=== PATIENT | male | born 1995 | race Caucasian/White ===

== ENCOUNTER 2016-12-15 08:52 | Inpatient (IN) | payer OTHER ==
[~2016-12-15] VITALS: Ht 188 cm; Wt 74.8 kg
[~2016-12-15 08:52] MED LIST: AMOXICILLIN500 M1 PO; BACTRIM DS 8001 TAB PO; FLEXERIL 5MG TAB5 MG PO; IBU800 MG PO; NAPROXEN500 MG PO; PREDNICOT20 MG PO; PROAIR HFA8.5 GM INH; TRAMADOL50 MG PO
--- NOTE | 2016-12-15 09:12 | ED AMS/SEIZURE/WEAK/DIZZY ---
History of Present Illness General Chief Complaint: ETOH/Drug Related Complaint Stated Complaint: BIBA FOR OVERDOSE Source: old records, EMS Exam Limitations: unable to give history, clinical condition Vital Signs & Intake/Output Vital Signs & Intake/Output Vital Signs Date Time Temp Pulse Resp B/P Pulse O2 O2 Flow FiO2 Ox Delivery Rate 12/15 1249 97.4 91 16 115/61 100 Room Air 12/15 1046 97.7 120 20 113/77 97 Room Air Room Air 12/15 0926 97 Room Air Room Air 12/15 0918 97.7 122 20 139/93 97 Allergies Coded Allergies: aspirin (UNKNOWN 12/15/16) venom-honey bee (UNKNOWN 12/15/16) Reconcile Medications Albuterol Sulfate (Proair Hfa) 90 MCG HFA.AER.AD 2 PUF INH Q4-6 PRN PRN asthma (Reported) Methadone Hydrochloride (Methadone HCl) 10 MG TABLET 70 MG PO DAILY opiate use (Reported) Only one dose given in the hospital. Please contact your methadone clinic for further instructions. Triage Nurses Notes Reviewed? yes HPI: Patient presents for evaluation of unresponsiveness. He was dosed with 2 mg of Narcan prehospital with improvement. He presents to the emergency department delirious, writhing on the stretcher. Patient attempts to answer questions with mumbled unintelligible speech. Past History Travel History Traveled to [place] past 21 day No Medical History Any Pertinent Medical History? 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 No (UNOBTAINABLE) Review of Systems Review of Systems Constitutional: Reports: see HPI. Comments pt unable to provide ros Physical Exam Physical Exam General Appearance: see below Comments: gen: wn, wd, no acute resp distress head: nc/at eyes: normal inspection, perrl ears: normal inspection nose: normal inspection throat/mouth: moist mucosa neck: supple, from, no goiter heart: rrr, no mrg lungs: cta bilaterally with normal air entry chest: nt abd: soft, nd, normal bowel sounds, nontender back: normal range of motion ext: normal range of motion, no cyanosis, clubbing or edema skin: warm and dry circulatory: normal radial pulses neuro: cn 2-12 grossly intact, speech garbled and unintelligable, unable to assess further psych: delirious, uncooperative, unable to assess further Core Measures ACS in differential dx? No CVA/TIA Diagnosis: No Severe Sepsis Present: No Septic Shock Present: No Progress Differential Diagnosis: drug intoxication, overdose, suicide attempt Plan of Care: Orders Procedure Date/time Status Admit to inpatient 12/15 1300 Active Admit to inpatient 12/15 1255 Active Restraint- Discontinue 12/15 1224 Active Restraint- Behavioral (Renew) 12/15 1200 Active Patient Safety Monitor 12/15 0910 Active Restraint- Behavioral (Initial 12/15 0910 Active URINE DRUG SCREEN FOR ER ONLY 12/15 909 Complete ACETOMINOPHEN 12/15 909 Complete SALICYLATE 12/15 909 Complete ETHANOL 12/15 909 Complete COMPREHENSIVE METABOLIC PANEL 12/15 909 Complete CBC WITHOUT DIFFERENTIAL 12/15 909 Complete Laboratory Tests 12/15/16 0950: Anion Gap 16, Estimated GFR > 60, BUN/Creatinine Ratio 8.8, Glucose 136 H, Calcium 9.1, Total Bilirubin 0.6, AST 20, ALT 22, Alkaline Phosphatase 109, Total Protein 6.5, Albumin 4.1, Globulin 2.4, Albumin/Globulin Ratio 1.7, Salicylates < 1.0, Acetaminophen < 10.0 L, Serum Alcohol < 10.0 12/15/16 0940: Urine Opiates Screen 3341.00 H, Methadone Screen > 735 H, Barbiturate Screen < 60, Ur Phencyclidine Scrn < 6.00, Amphetamines Screen < 100, U Benzodiazepines Scrn > 800 H, Urine Cocaine Screen > 1000 H, Urine Cannabis Screen < 5.00 12/15/16 0915: CBC w Diff NO MAN DIFF REQ, RBC 4.39 L, MCV 87.2, MCH 29.2, RDW 12.9, MPV 9.4, Gran % 66.6, Lymphocytes % 18.5 L, Monocytes % 12.8 H, Eosinophils % 1.5, Basophils % 0.6, Absolute Granulocytes 5.9, Absolute Lymphocytes 1.6, Absolute Monocytes 1.1 H, Absolute Eosinophils 0.1, Absolute Basophils 0, PUBS MCHC 33.5 Initial ED EKG: NSR, no ST T wave changes Comments: 12/15/2016 9:11:07 AM Abad is not responsive to verbal redirection. He continues to move and writhe around the stretcher. He presents a clear risk to himself in attempts to get off the stretcher unsafely. He is at high risk of falling with subsequent injury. 4. restraints have been ordered. Given the likely etiology of narcotic overdose I'm attempting to hold on sedation at this time. additional information per father. pt has a court appt this am. excuse note provided. 12:24 abad has calmed and restraints have been removed. o2 sats remain normal. workup reveals polypharmaceutical overdose. tba. Departure Departure Disposition: STILL A PATIENT Condition: Stable Clinical Impression Primary Impression: Polysubstance overdose Qualifiers: Encounter type: initial encounter Injury intent: undetermined intent Qualified Code: T50.904A - Poisoning by unspecified drugs, medicaments and biological substances, undetermined, initial encounter Referrals: DANITA MAYERS MD (PCP/Family) Departure Forms: Customer Survey General Discharge Information Admission Note Spoke With: PIETER VIZCARRA MD Documentation of Exam: Documentation of any treatments & extenuating circumstances including Concerns Regarding Discharge (functional status, medication knowledge or non-compliance, living conditions, etc.) that warrant an admission rather than observation: Patient presents after being found obtunded by family. He was treated with prehospital Narcan with improvement. His evaluation reveals a polypharmaceutical overdose of an unclear intent. He required 4 point restraints to protect him from self injury. Although these have now been removed he is still quite somnolent and requires monitoring of his pulse oximetry for the possibility of narcotic-induced hypoventilation and hypoxemia. The patient has been unable to provide a coherent history and the possibility of self-harm/suicide overdose cannot be ruled out at this time. In addition the patient had a court appearance today raising the possibility of an underlying psychiatric disorder such as depression or severe anxiety. Given this I feel he will require a multiple day hospitalization patient when he is sober and can provide coherent history for the possibility of underlying psychiatric disease. Critical Care Note Critical Care Note Critical Care Time: 30-74 min
--- NOTE | 2016-12-15 09:34 | NUR ---
SAYRA FROM HOME, PER EMS PARENTS FOUND PT UNRESPONSIVE, PT IS CURRENTLY ON METHADONE. PER EMS "FRESH TRACK MONTIEL NOTED TO BILATERAL ANTICUBITAL AREAS. NARCAN 2MG GIVEN ENROUTE, PT BECAME RESPONSIVE, BUT INCOHERENT. PT ARRIVES TO ED AWAKE, SPEAKING BUT MUMBLING INCOHERTENLY. PT ARRIVES WITH UNDERWEAR ON ONLY, NO VALUABLES OR OTHER CLOTHING, SECURITY AT BEDSIDE, PAPER SCRUBS ON. PT THRASHING ON STRETCHER, GETTING OFF STRETCHER, TRYING TO PULL THINGS OFF ROOM # 11 CART, DR CONDE IN TO [facility].
--- NOTE | 2016-12-15 09:34 | NUR ---
BLOODWORK SENT TO LAB.
[2016-12-15 09:35] LABS: ABSOLUTE BASOPHIL COUNT 0 /CUMM (0.0-0.2); ABSOLUTE EOSINOPHIL COUNT 0.1 /CUMM (0.0-0.7); ABSOLUTE GRANULOCYTE CT 5.9 /CUMM (1.4-6.5); ABSOLUTE LYMPH COUNT 1.6 /CUMM (1.2-3.4); ABSOLUTE MONOCYTE COUNT 1.1 /CUMM (0.10-0.60); BASOPHIL % 0.6 % (0.0-2.0); EOSINOPHIL % 1.5 % (0-5); GRANULOCYTE % 66.6 % (42.2-75.2); HEMATOCRIT 38.3 % (42-52); MEAN CORPUSCULAR HGB 29.2 PG (27.0-31.0); MEAN CORPUSCULAR HGB CONC 33.5 G/DL (33.0-37.0); MEAN CORPUSCULAR VOLUME 87.2 FL (80.0-94.0); MEAN PLATELET VOLUME 9.4 FL (7.4-10.4); PLATELET COUNT 217 /CUMM (130-400); RBC DISTRIBUTION WIDTH 12.9 % (11.5-14.5); RED BLOOD CELL CT 4.39 /CUMM (4.70-6.10); WHITE BLOOD CELL COUNT 8.9 /CUMM (4.8-10.8)
--- NOTE | 2016-12-15 09:54 | NUR ---
FATHER NOW AT BEDSIDE ASKING DR CONDE TO "WRITE A LETTER THAT THE PT IS HERE IN THE ED FOR HIM TO BRING TO THE COURT". FATHER ALSO STATING "SO WHAT DID HE DO, I HAVE 5 OR 6 KLONOPIN MISSING THAT I KEEP IN A LOCKED SAFE". FATHER REASSURED THAT PT HAS SEEN THE ER MD, BLOODWORK AND URINE HAS BEEN SENT TO LAB.
--- NOTE | 2016-12-15 10:52 | NUR ---
FATHER GANGA: [phone], CALL IF NEEDED FOR ANYTHING.
--- NOTE | 2016-12-15 12:00 | NUR ---
PT SLEEPING AT THIS TIME, LEFT WRIST AND RIGHT ANKLE RESTRAINTS REMOVED.
--- NOTE | 2016-12-15 12:24 | NUR ---
PT CONTINUES TO SLEEP COMFORTABLY, ALL RESTRAINTS REMOVED. SRUTHI MCBRIDE REMAINS AT BEDSIDE.
--- NOTE | 2016-12-15 13:20 | NUR ---
PT SLEEPING COMFORTABLY, SRUTHI MCBRIDE REMAINS AT BEDSIDE.
--- NOTE | 2016-12-15 13:54 | History & Physical ---
PAMELA ESCOBAR MD 12/15/16 1354: General Information and HPI MD Statement: I have seen and personally examined GANGA MIGUEL III and documented this H&P. The patient is a 21 year old M brought in by ambulance after being found unresponsive. Exam Limitations: unable to give history, not alert/orientated, clinical condition, intoxication History of Present Illness: 21 year old male with a significant history polysubstance abuse brought in by ambulance for evaluation after being found unresponsive by his father. Patient is obtunded and unable to give a history - his father whom is present offers collateral information. He states that his son "got involved with a group of old friends" yesterday and went to sleep around 2:30am and was last seen normal prior to going to sleep. This morning he was found unresponsive when his father went to wake him for for his court date today. EMS services were called and 2mg of Narcan were given in the field, which made the patient rousable/agitated/ delerious. Four point hard restraints were placed, patient was observed to be mumbling and writhing on the strecher and not following commands. Currently patient is seen out of restraints with a patient safety monitor sitting at bedside whom offers no further collateral information. When his name is called or noxious stimuli is applied his eyes open. When asked if he has any pain or if he needs anything he shakes his head indicating no, however it is not clear if he fully understands questioning. Review of Systems is unobtainable. PMHx: Polysubstance abuse, IB Social Hx: unobtainable Allergies/Medications Allergies: Coded Allergies: aspirin (UNKNOWN 12/15/16) venom-honey bee (UNKNOWN 12/15/16) Home Med list Albuterol Sulfate (Proair Hfa) 0.09 MG/Actuation KATHY 0.09 MG INH PRN PRN ASTHMA (Reported) Amoxicillin 500 MG TABLET 1 TAB PO TID CELLULITIS Cyclobenzaprine (Flexeril 5MG Tab) 5 MG TAB 1 TAB PO TID PRN PAIN Ibuprofen (Ibu) 800 MG TAB 1 TAB PO Q8H PRN PAIN Naproxen 500 MG TAB 1 TAB PO BID PAIN Prednisone (Prednicot) 20 MG TAB 3 TAB PO DAILY RASH Sulfamethoxazole/Trimethopri (Bactrim Ds 800 MG-160 MG) 1 TAB TAB 1 TAB PO BID CELLULITIS TRAMADOL HCL (Tramadol) 50 MG TABLET 1-2 TAB PO Q6P PRN PAIN Past History Travel History Traveled to [place] past 21 day No Medical History Neurological: NONE EENT: NONE Cardiovascular: NONE Respiratory: NONE Gastrointestinal: NONE Hepatic: NONE Renal: NONE Musculoskeletal: NONE Psychiatric: substance abuse, OVERDOSE, ON METHADONE Endocrine: NONE Blood Disorders: NONE Cancer(s): 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 Home Who Do You Live With? parent ETOH Use: 6 Illicit Drug Use: heroin Review of Systems Review of Systems Constitutional: Reports: see HPI. Exam & Diagnostic Data Last 24 Hrs of Vital Signs/I&O Vital Signs Date Time Temp Pulse Resp B/P Pulse O2 O2 Flow FiO2 Ox Delivery Rate 12/15 1839 97.2 89 18 104/50 98 Room Air 12/15 1757 98.5 106 18 132/84 96 Room Air 12/15 1654 98 16 114/64 99 Room Air 12/15 1511 71 18 102/57 99 Room Air 12/15 1430 98.0 90 20 102/57 99 Room Air Room Air 12/15 1249 97.4 91 16 115/61 100 Room Air 12/15 1046 97.7 120 20 113/77 97 Room Air Room Air 12/15 0926 97 Room Air Room Air 12/15 0918 97.7 122 20 139/93 97 Intake & Output 12/15 1600 12/15 0800 12/15 0000 Intake Total Output Total 1100 Balance -1100 Output, Urine 1100 Patient 58.967 kg Weight Physical Exam General Appearance No Acute Distress, minimally rousable to verbal/tactile stimuli Skin No Rashes, No Breakdown, No Significant Lesion HEENT Atraumatic Neck Supple Cardiovascular Regular Rate, Normal S1, Normal S2, No Murmurs Lungs Clear to Auscultation, Normal Air Movement Abdomen Normal Bowel Sounds, Soft, No Tenderness, No Hepatospenomegaly, No Masses Neurological somnolent/lethargic, limited neurologic exam Extremities No Clubbing, No Cyanosis, No Edema, Normal Pulses, No Tenderness/ Swelling Vascular Normal Pulses, Pulses Symmetrical Last 24 Hrs of Labs/Abrahan: Laboratory Tests 12/15/162007: Sodium Pending, Potassium Pending, Chloride Pending, Carbon Dioxide Pending, Anion Gap Pending, BUN Pending, Creatinine Pending, BUN/Creatinine Ratio Pending 12/15/16 0950: Anion Gap 16, Estimated GFR > 60, BUN/Creatinine Ratio 8.8, Glucose 136 H, Calcium 9.1, Total Bilirubin 0.6, AST 20, ALT 22, Alkaline Phosphatase 109, Troponin I < 0.01, Total Protein 6.5, Albumin 4.1, Globulin 2.4, Albumin/ Globulin Ratio 1.7, Salicylates < 1.0, Acetaminophen < 10.0 L, Serum Alcohol < 10.0 12/15/16 0940: Urine Opiates Screen 3341.00 H, Methadone Screen > 735 H, Barbiturate Screen < 60, Ur Phencyclidine Scrn < 6.00, Amphetamines Screen < 100, U Benzodiazepines Scrn > 800 H, Urine Cocaine Screen > 1000 H, Urine Cannabis Screen < 5.00 12/15/16 0915: CBC w Diff NO MAN DIFF REQ, RBC 4.39 L, MCV 87.2, MCH 29.2, RDW 12.9, MPV 9.4, Gran % 66.6, Lymphocytes % 18.5 L, Monocytes % 12.8 H, Eosinophils % 1.5, Basophils % 0.6, Absolute Granulocytes 5.9, Absolute Lymphocytes 1.6, Absolute Monocytes 1.1 H, Absolute Eosinophils 0.1, Absolute Basophils 0, PUBS MCHC 33.5 Assessment/Plan Assessment: 21 year old male with a history of polysubstance abuse brought in for evaluation after being found unresponsive. Initially upon evaluation patients father was reportedly requesting a document that states patient was inhopsital to give to the court as to extend the date so he doesn't "lose out on bail". His father also reports that patient attends a methadone clinic, and that his son "must have his medicine". Given these facts and that patients positive urine toxicology report for opiates, methadone, benzodiazpenes and cocaine patient potentially have an unintential overdose, or possible intention as to avoid court. Psychiatry consult placed and patient admitted to the general medicine floor for further evaluation. Polysubstance overdose: Extensive history of substance abuse and overdose. Urine toxicology positive on admission for opiates, benzodiazepines, cocaine, and methadone. Patient reportedly attends a methadone clinic in [place]. - NPO for altered mental status - IVF hydration - Hold narcotic/sedative medications - CIWA protocol - Confirm methadone dose - Psych consult - Patient safety monitor Diet - NPO, advance as tolerated when alert DVT PPx - subcutaneous heparin Code status - FULL CODE As Ranked By This Provider Problem List: 1. Polysubstance overdose Qualifiers Encounter type: initial encounter Injury intent: undetermined intent Qualified Code: T50.904A - Poisoning by unspecified drugs, medicaments and biological substances, undetermined, initial encounter Core Measures/Miscellaneous Acute Coronary Syndrome ACS Diagnosis: No Cerebrovascular Accident CVA/TIA Diagnosis: No Congestive Heart Failure CHF Diagnosis: No Venous Thromboembolism VTE Risk Factors: No Risk Factors VTE Prophylaxis Ordered Inpt: Pharm- Heparin No Mech VTE prophylaxis d/t: No contraindications No VTE Pharm Prophylaxis d/t: No contraindications VTE Diagnosis: No VTE Type: NONE VTE Confirmed by (Test): NONE Severe Sepsis Severe Sepsis Present: No Septic Shock Septic Shock Present: No Miscellaneous Documentation Attending Case Discussed With: PIETER VIZCARRA MD Primary Care Physician: DANITA MAYERS MD Patient sees these Specialists None Level of Patient Care: General Medicine Consults Needed: Consulting Specialty: Psychiatry ZARA NEWMAN 12/15/16 1354: Resident Review Statement Resident Statement: examined this patient, discussed with internal sales, reviewed images Other Findings: This is a 21-year-old male who presents with polypharmaceutical overdose. Patient unable to provide any history. Per our records, He was found obtunded by family(not present at bedside). Prehospital, he received Narcan which improved his mental status. In the ED, he required 4. restraints to protect from self injury. The possibility of self-harm/suicidal overdose could not be ruled out. Please see above for more detail. Urine toxicology positive for benzo, cocaine, methadone, opiates, other pertinent lab: Potassium level of 3,(patient received a dose of KCl 10 meq in the ED) Physical exam: NAD, somnolent, PERRLA, RRR, CTABL(frontal auscultation), abdomen : normal bowel sounds, no distention, no lower extremity edema Problem list #1 polypharmaceutical overdose Plan * Vital signs per protocol * Narcan as needed * CIWA protocol * IV fluids; normal saline at 150 mL taper our * Sitter monitor * Monitor electrolytes closely and replete accordingly * Psych and social consult * Would not start Ativan at the moment given mental status; reevaluate tomorrow morning * DVT prophylaxis with subcutaneous heparin * Nothing by mouth given altered mental status * Full code; please confirm CODE STATUS in the morning * Please confirm methadone dose PIETER VIZCARRA MD 12/15/16 1809: Attending MD Review Statement Attending Statement Attending MD Statement: examined this patient, discuss w/resident/PA/LENS COATER, agreed w/resident/PA/LENS COATER, reviewed EMR data (avail) Attending Assessment/Plan: 21M PMH polysubstance abuse found unresponsive by family and brought in by EMS. Given Narcan x2 by EMS with agitation. When seen by me, patient was lethargic and mumbling and not able to provide history. Maintaining airway well, breathing comfortably, vitals normal. Urine toxicology shows positive methadone , opioids, cocaine, and benzos. Labs otherwise show hypokalemia. Plan - Admit to general medicine - Normal saline at 150mL/hr - Narcan PRN at bedside - Will require continuous monitor - Replete potassium - Monitor electrolytes - When awake, psychiatry consult - If signs of agitation or withdrawal, may start low dose Ativan, but do not start unless more awake and breathing is stable - DVT PPx
--- NOTE | 2016-12-15 14:00 | NUR ---
PT SLEEPING COMFORTABLY, NO COMPLAINTS AT THIS TIME. SITTER REMAINS AT BEDSIDE.
--- NOTE | 2016-12-15 14:50 | NUR ---
[facility] [phone]
--- NOTE | 2016-12-15 15:35 | NUR ---
ASSUMED CARE OF PT
--- NOTE | 2016-12-15 15:40 | NUR ---
PT LETHARGIC. OPENING EYES BRIEFLY WITH TACTILE STIMULIT BUT WILL NOT STAY AWAKE. SPOKE WITH CHARGE NURSE KAYLA AND HOUSE STAFF TO VERIFY PTS READINESS TO GO TO GENERAL MED FLOOR. PLAN IN PLACE TO CHECK TROPONINS AND REVIEW EKG. WILL CONTINUE TO MONITOR PT
--- NOTE | 2016-12-15 16:49 | NUR ---
PT MORE RESPONSIVE THEN EARLIER. SAT UP ON STRETCHER AND SHIFT POSITION ON STRETCHER, THEN FELL BACK TO SLEEP. OPENING UP EYES AND MUMBLING TO STAFF. ASKED IF HE COULD GO HOME. GIVEN NARCAN AND IVF STARTED AT 75CC/HR
--- NOTE | 2016-12-15 16:55 | NUR ---
CALLED DR NEWMAN AND NOTIFIED HER OF NEGATIVE TROPONIN LEVEL AND THAT PT MORE RESPONSIVE BUT STILL DROWSY. DR NEWMAN STATES PT IS CLEARED TO GO TO GEN MED BED
--- NOTE | 2016-12-15 17:12 | NUR ---
CALLED REPORT TO DESMOND ON .
--- NOTE | 2016-12-15 17:46 | NUR ---
FATHER AT BEDSIDE, NOTIFIED OF PLANS TO BRING PT TO ROOM
--- NOTE | 2016-12-15 17:55 | NUR ---
DO REMOVED PRIOR TO LEAVING ED. PT AWAKE, TALKING. ABLE TO MOVE AROUND AND CHANGE POSITION ON STRETCHER WITHOUT ASSISTANCE. PT ORIENTED X3 BUT STILL SOMEWHAT SLEEPY. PT STATES HE IS MUCH MORE COMFORTABLE WITHOUT DO IN PLACE. FATHER AT BEDSIDE AND VERBALIZED NEED FOR PT TO BE DISCHARGED TONIGHT SO HE CAN GO TO METHADONE CLINIC IN THE AM. REASSURE FATHER THAT WE CAN GET PHYSCIANS TO SPEAK WITH HIM CONCERNING PLAN OF CARE
--- NOTE | 2016-12-15 18:13 | Admission Certification ---
Admission Certification Certification Statement - As attending physician, I certify that at the time of - admission, based on clinical presentation, severity of - symptoms, need for further diagnostic testing and - therapeutic interventions, and risk of adverse outcomes - without in-hospital treatment, in my clinical assessment, - this patient requires an acute hospital stay for a minimum - of two nights or longer. I have also considered psychsocial - factors such as support system, advanced age, financial - issues, cognitive issues, and failed out-patient treatments, - past re-admission history, safety of patient, and lack of - compliance as applicable. Specific rationale supporting this admission is: Unresponsiveness due to drug overdose
[2016-12-15 18:39] VITALS: BP 104/50
--- NOTE | 2016-12-15 18:43 | NUR ---
PT ARRIVED TO ROOM 232 AT 1805. PT ACCOMPANIED WITH PATIENT SAFETY MONITOR. PT DROWSY BUT AROUSABLE. PT FOLLOWING COMMANDS, ANSWERING QUESTIONS. FATHER AT BEDSIDE WITH PT. LUNGS CLEAR. SKIN INTACT. TRACK MONTIEL NOTED TO RAC AND LAC, RED BUT INTACT, NO DRAINAGE. PT DENIES ANY SUICIDAL OR HOMICIDAL THOUGHTS. PT RESTING COMFORTABLY IN BED. CIWA SCORE OF 0. PATIENT SAFETY MONITOR AWARE OF PT'S NEED FOR SITTER. FATHER AWARE OF POC. REQUESTED TO SPEAK WITH PLANT PROTECTION OFFICERTORSTEN IN TO SEE PT & FATHER. PTS FATHER CONCERNED ABOUT PT MISSING METHADONE TOMORROW. TORSTEN LAM SPOKE WITH FATHER, FATHER OK WITH PLAN. WILL CONTINUE TO MONITOR.
[2016-12-15 21:47] VITALS: BP 104/50
[2016-12-16 02:17] VITALS: BP 116/74
[2016-12-16 06:33] VITALS: BP 116/74
--- NOTE | 2016-12-16 09:23 | PN- Housestaff ---
PAMELA ESCOBAR MD 12/16/16 0923: Subjective Follow-up For: Altered mental status Polysubstance intoxication Subjective: Patient seen and examined. He is seen lying upright in bed resting comfortably. He appears to be in no acute distress. Currently he is alert and oriented to person, place, and time. He is appropriate and cooperative with questioning and examination. At this time he has no complaints and admits that he "messed up" and regrets his decisions that ended him up in the hospital. Additionally he denies any headache, fever, chills, chest pain, shortness of breath, palpitations, nausea, vomiting, diarrhea, numbness/tingling, tremor. No overnight events reported, restraints and patient safety monitor discontinued. Review of Systems Constitutional: Reports: see HPI. Objective Last 24 Hrs of Vital Signs/I&O Vital Signs Date Time Temp Pulse Resp B/P Pulse O2 O2 Flow FiO2 Ox Delivery Rate 12/16 0633 97.3 74 16 116/74 98 Room Air 12/16 0217 97.9 84 16 116/74 99 Room Air 12/15 2147 97.2 89 20 104/50 98 Room Air 12/15 2133 Room Air Room Air 12/15 1839 97.2 89 18 104/50 98 Room Air 12/15 1757 98.5 106 18 132/84 96 Room Air 12/15 1654 98 16 114/64 99 Room Air 12/15 1511 71 18 102/57 99 Room Air 12/15 1430 98.0 90 20 102/57 99 Room Air Room Air 12/15 1249 97.4 91 16 115/61 100 Room Air Intake & Output 12/16 1600 12/16 0800 12/16 0000 Intake Total 1300 750 Output Total 600 Balance 1300 150 Intake, IV 1200 550 Intake, Oral 100 200 Output, Urine 600 Patient 74.843 kg Weight Physical Exam General Appearance: Alert, Oriented X3, Cooperative, No Acute Distress Other Physical Findings: General -well-developed, well-nourished young male in no acute distress HEENT - NCAT, PERRL, EOMI, anicteric sclera Cardio - S1, S2 w/o murmurs/gallops/rubs Resp - CTA bilaterally w/o wheezing/rhochi/crackles GI - soft, nontender, nondistended, bowel sounds present Neuro - Awake and alert, CN II - XII grossly intact Extremities - no edema, pulses intact Current Medications: Current Medications Sig/Bri Start time Last Medication Dose Route Stop Time Status Admin Heparin Sodium 5,000 UNIT Q8 12/15 2200 AC 12/16 (Porcine) SC 0621 Methadone HCl 70 MG DAILY 12/16 1052 AC 12/16 PO 1113 Naloxone HCl 0 .STK-MED ONE 12/15 1642 DC .ROUTE Naloxone HCl 0.4 MG ONCE ONE 12/15 1630 DC 12/15 SC 12/15 1631 1649 Potassium Chloride 10 MEQ ONCE ONE 12/15 2145 DC 12/15 IV 12/15 2146 2236 Sodium Chloride 1,000 ML Q13H 12/15 1630 AC 12/16 IV 0347 Sodium Chloride 1,000 ML BOLUS ONE 12/15 1100 DC 12/15 IV 12/15 1159 1111 Last 24 Hrs of Lab/Abrahan Results Last 24 Hrs of Labs/Mics: Laboratory Tests 12/15/16 2008: Anion Gap 8, Estimated GFR > 60, BUN/Creatinine Ratio 7.1 Assessment/Plan Assessment: Patient is much more alert, awake today than when initially seen on admission yesterday. He is appropriate and cooperative and remorseful about the decisions that ended him up in the hospital. His methadone dose was confirmed with [facility] meth[facility] clinic of [facility] for which she was continued on 70 mg of methadone today. He will be observed for another 24 hours and discharge tomorrow after morning dosage of his methadone medication. Polysubstance intoxication: Urine toxicology on admission was positive for opiates, benzodiazepines, cocaine , and methadone. Patient is currently awake, alert, and oriented to person place and time. He is appropriate, cooperative and answering questions/ following commands. He denies alcohol use. -Started on regular diet -IV fluids discontinued as patient is eating and drinking -[facility] Opiate abuse/dependence: Currently attends [facility] meth[facility] [place] in [facility]. Methadone dose confirmed after speaking with their staff. -Methadone 70 mg by mouth daily, hold for sedation Diet-regular diet DVT prophylaxis-subcutaneous heparin CODE STATUS-full code Problem List: 1. Polysubstance overdose Pain Ratin Pain Location: None Pain Goal: Remain pain free Pain Plan: As noted in plan Tomorrow's Labs & Rationales: Basic metabolic panel Urine toxicology Magnesium Consulting Request: Consulting Specialty: Psychiatry SERGIO CONDE,MADI 12/16/16 1209: Attending MD Review Statement Attending Statement Attending MD Statement: examined this patient, discuss w/resident/PA/MEDICAL IMAGING TECHNOLOGIST, agreed w/resident/PA/MEDICAL IMAGING TECHNOLOGIST, reviewed EMR data (avail), discussed with nursing, reviewed images Attending Assessment/Plan: 21-year-old young male with past medical history significant for polysubstance abuse is being admitted on the floor for an episode of unresponsiveness. Patient's urine was positive for methadone, opiates, cocaine and benzos. Patient was seen and examined this morning on the bedside and he was alert and oriented 3. Reported no active issues and no pain. He reported that he takes about 75 mg of methadone daily from the program. His vitals were stable and unremarkable physical examination. Given improvement in his clinical status, we will opt for him for the next 24 hours, will check his chemistry in the morning, if him the dose of methadone in the morning and will likely discharge him with follow-up with his primary care physician. The resident has spoken to the family in detail about the plan.
[2016-12-16 14:19] VITALS: BP 120/58
[2016-12-16 16:00] VITALS: BP 108/58
--- NOTE | 2016-12-16 16:35 | NUR ---
PT C/O SEVER PAIN 9/10 TP LOWER BACK AND L SIDE OF NECK. NO ECCHYMOSIS NOTED , NONTENDER. DISABILITY AIDE JENNY NOTIFIED AND IN TO SEE PT. TYLENOL ORDERED AND RICE SOCK APPLIED TO NECK. WILL MONITOR
--- NOTE | 2016-12-16 19:39 | Cons- Psychiatry ---
Psychiatric Consult Date of Consult: 12/16/16 Reason for Consult: Patient seen and evaluated. In outpatient tx, will start both substance use (court mandated likely) and mental health tx. Not intentional overdose -stated that he "thought the last pill was something else" and has not happened in the past that he recalls. Girlfriend at bedside has not noted any recent changes in behavior. Rec: No need for further psychiatric intervention; not suicidal, not homicidal and not psychotic. Full consult to follow. 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 Reviewed relevant labs/notes from medical record. He stated that he was with some friends and that he took the wrong pill I think and more than he usually takes; that this was an unintentional overdose. Utox + opioids, methadone, cocaine, bz. Was lethargic on admission. During eval calm, awake, alert and coherent. Stated that he normally eats well, sleeps well, good energy. Has court date this week and has court mandated drug tx which he has an appt for on 12/20/16, with [facility] and [facility]. Stated when I introduced myself, Im not suicidal or anything it was an accident and denied having any recent depressive thoughts or any past significant psychiatric treatment or hx. Stated that from ages [age] he had more significant drug use (no alcohol use per him), and that he has been doing better recently. Has active charges but believes that he will have probation reinstated where he will have regular drug screens, and is agreeable to this and to maintain abstinence. Girlfriend at bedside stated that she didn't know about extent of his drug use, but overall stated that his behavior has not been significantly different, no concern about depression or intentional overdose. No evidence of psychotic sx, not acutely manic or depressed. No past suicide attempts. stated that he has had occasional psychiatric tx when he was in drug tx. Plans to finish his GED, classes starting in December, but does not know where he will work after [employer], considering a [employer] school. No children, lives w/ parents. MSE: young man, calm and pleasant, cooperative. Fair eye contact. No movement d/o noted. No psychomotor slowing or agitation. Speech wnl. Thought process coherent and linear. Thought content neg for any thoughts of wanting to harm himself, anyone else; no delusions or other major thought abnormalities elicited, apart from minimizing drug use and impact on his legal circumstances and his health. Insight to drug use poor, judgment poor.A: 21 y./o man w/hx significant drug use d/o, s/p overdose. Now calm, coherent and admitted was an accidental overdose. Poor insight to impact of drug use on his health, legal status; however motivated (court mandated mostly, external motivation) for abstinence and avoiding group home time. Has outpatient tx per him starting this week. Has risks associated w/ drug use, legal hx; impaired judgment, which should be mitigated w/ Abstinence, education, drug rehab/outpatient program. Rec: No indication for further psychiatric intervention - needs intensive tx for his drug use; has a program starting this week. Has his ongoing methadone program. No need for sitter, does not meet criteria for psychiatric admission. Dx: drug overdose. Provisional Treatment Plan: see above
[2016-12-16 22:46] VITALS: BP 120/70
[2016-12-17 02:00] VITALS: BP 106/60
[2016-12-17 07:20] VITALS: BP 100/56
--- NOTE | 2016-12-17 08:15 | PN- Housestaff ---
KARINA ACOSTA 12/17/16 0815: Subjective Follow-up For: - polysubstance abuse Subjective: Pt was comfortable, and was insistent that the patient be discharged. Vitals were stable overngiht, and after speaking to the attending physician, Dr. Schwab, it was ascertained that the pt could be discharged. He was afebrile overnight. Review of Systems Constitutional: Reports: see HPI. Objective Last 24 Hrs of Vital Signs/I&O Vital Signs Date Time Temp Pulse Resp B/P Pulse O2 O2 Flow FiO2 Ox Delivery Rate 12/17 0720 98.2 78 16 100/56 99 Room Air 12/17 0200 97.7 68 16 106/60 100 Room Air 12/16 2246 98.4 78 18 120/70 94 Room Air 12/16 1600 98.4 79 16 108/58 12/16 1419 98.0 75 18 120/58 98 Room Air Intake & Output 12/17 1600 12/17 0800 12/17 0000 Intake Total 200 Output Total Balance 200 Intake, Oral 200 Physical Exam General Appearance: No Acute Distress Other Physical Findings: General Exam: AAOx3, No acute distress, Skin: No rashes, no breakdown HEENT: PERRLA, EOMI Neck: Supple, No JVD No cervical lymphadenopathy CVS: Reg Rate, Normal S1,S2, No MGR Resp: Normal air entry, no ronchi/rales Abdomen: Soft, No tenderness, Normal Bowel Sounds Neuro: Normal Speech, Strength 5/5 b/l x 4 extremities, Sensation intact, CN III -XII NL, Reflexes 2+ Extremities: No cyanosis, pedal edema Current Medications: Current Medications Sig/Bri Start time Last Medication Dose Route Stop Time Status Admin Acetaminophen 650 MG ONCE ONE 12/16 1615 DC 12/16 PO 12/16 1616 1621 Heparin Sodium 5,000 UNIT Q8 12/15 2200 AC 12/17 (Porcine) SC 0659 Methadone HCl 70 MG DAILY 12/16 1052 AC 12/16 PO 1113 Nicotine 14 MG DAILY 12/16 1250 AC 12/16 TOP 1556 Sodium Chloride 1,000 ML Q13H 12/15 1630 DC 12/16 IV 0347 Assessment/Plan Assessment: His a young man who is being admitted for unresponsiveness likely because of polysubstance overdose. Polysubstance intoxication: Urine toxicology on admission was positive for opiates, benzodiazepines, cocaine , and methadone. Patient is currently awake, alert, and oriented to person place and time. He is appropriate, cooperative and answering questions/ following commands. He denies alcohol use. -Started on regular diet -CIWA Opiate abuse/dependence: Currently attends [facility] methadone clinic in [facility]. Methadone dose confirmed after speaking with their staff. Discharged on methadone. -Methadone 70 mg by mouth daily, hold for sedation Diet-regular diet DVT prophylaxis-subcutaneous heparin CODE STATUS-full code Problem List: 1. Polysubstance overdose 2. Opiate use Pain Ratin Pain Location: None Pain Goal: Pain 4 or less Pain Plan: Tylenol when necessary Tomorrow's Labs & Rationales: No labs necessary. The patient to be discharged. Consulting Request: Consulting Specialty: Psychiatry SERGIO CONDE,BARRAZA 12/17/16 1137: Attending MD Review Statement Attending Statement Attending MD Statement: examined this patient, discuss w/resident/PA/AERIAL ADVERTISER, agreed w/resident/PA/AERIAL ADVERTISER, discussed with family, reviewed EMR data (avail), discussed with case mgmt, reviewed images Attending Assessment/Plan: 21-year-old young male with past medical history significant for polysubstance abuse is being admitted on the floor for an episode of unresponsiveness. Patient's urine was positive for methadone, opiates, cocaine and benzos. Patient was seen and examined this morning on the bedside and he was alert and oriented His vitals were stable and unremarkable physical examination. Patient will be receiving his dose of methadone 75 mg per oral daily and will then be discharged. Patient was also seen by the psych and the patient was evaluated and not considered to be suicidal or homicidal or psychotic at this stage. Agreed with the psych that he has risk associated with drug use, legal history and impaired judgment and should be mitigated with abstinence, education, drug rehabilitation/outpatient program. Patient will follow up with his primary care physician.
[2016-12-17] MEDS ORDERED: METHADONE HCL10 M1 PO (08:53)
--- NOTE | 2016-12-17 08:55 | Patient Discharge Instructions ---
Discharge Instructions General Discharge Information You were seen/treated for: 1. Polysubstance abuse Watch for these problems: 1. shortness of breath 2. chest pain, palpitations Special Instructions: 1. Please see your PCP within one week of discharge 2. Pleaes follow up with your methadone clinic for refill of your prescriptions Acute Coronary Syndrome Inclusion Criteria At DC or during hospital stay patient has or had the following: ACS DIAGNOSIS No Discharge Core Measures Meds if any: Prescribed or Continued at Discharge Meds if any: NOT Prescribed or Continued at Discharge Congestive Heart Failure Inclusion Criteria At DC or during hospital stay patient has or had the following: CHF DIAGNOSIS No Discharge Core Measures Meds if any: Prescribed or Continued at Discharge Meds if any: NOT Prescribed or Continued at Discharge Cerebrovascular accident Inclusion Criteria At DC or during hospital stay patient has or had the following: CVA/TIA Diagnosis No Discharge Core Measures Meds if any: Prescribed or Continued at Discharge Meds if any: NOT Prescribed or Continued at Discharge Venous thromboembolism Inclusion Criteria VTE Diagnosis No VTE Type NONE VTE Confirmed by (Test) NONE Discharge Core Measures - Per Current guidelines, there needs to be overlap - treatment for the first 5 days of Warfarin therapy. - If discharged on Warfarin prior to 5 days of - overlap therapy, the patient will need to be - assessed for post discharge needs including - *Post discharge parental anticoagulation - *Warfarin and/or parental anticoagulation education - *Follow up date to check INR post discharge At least 5 days overlap therapy as Inpatient No Meds if any: Prescribed or Continued at Discharge Note: Overlap Therapy is Warfarin and Anticoagulant Meds if any: NOT Prescribed or Continued at Discharge
--- NOTE | 2016-12-18 08:45 | Discharge Summary ---
Visit Information Visit Dates Admission Date: 12/15/16 Discharge Date: 12/17/16 Hospital Course Course Attending Physician: PIETER VIZCARRA MD Primary Care Physician: DANITA MAYERS MD Consulting Request: Consulting Specialty: Psychiatry Hospital Course: 21 year old male with a significant history polysubstance abuse brought in by ambulance for evaluation after being found unresponsive by his father. Patient is obtunded and unable to give a history - his father whom is present offers collateral information. He states that his son "got involved with a group of old friends" yesterday and went to sleep around 2:30am and was last seen normal prior to going to sleep. This morning he was found unresponsive when his father went to wake him for for his court date today. EMS services were called and 2mg of Narcan were given in the field, which made the patient rousable/agitated/ delerious. Four point hard restraints were placed, patient was observed to be mumbling and writhing on the strecher and not following commands. Currently patient is seen out of restraints with a patient safety monitor sitting at bedside whom offers no further collateral information. When his name is called or noxious stimuli is applied his eyes open. When asked if he has any pain or if he needs anything he shakes his head indicating no, however it is not clear if he fully understands questioning. Review of Systems is unobtainable. PMHx: Polysubstance abuse, IB Social Hx: unobtainable Polysubstance intoxication: Urine toxicology on admission was positive for opiates, benzodiazepines, cocaine , and methadone. Patient is currently awake, alert, and oriented to person place and time. He is appropriate, cooperative and answering questions/ following commands. He denies alcohol use. CIWA scores were consistently 0. Patient was evaluated by psychiatric oracle iam consultant and it was determined that patient had no indication for further psychiatric intervention, however required intensive treatment for his drug use and commented on a program patient is to start this week. He is to be discharged to home with instruction to follow-up with his primary care provider and drug rehabilitation program after discharge. Opiate abuse/dependence: Currently attends [facility] methadone clinic in [facility]. Methadone dose confirmed after speaking with their staff. Patient was continued on his methadone dose during admission and was continued on discharge. Allergies: Coded Allergies: aspirin (UNKNOWN 12/15/16) venom-honey bee (UNKNOWN 12/15/16) Significant Procedures: Urine toxicology: -Opiates: 3341 -Methadone: >735 -Acetaminophen: Negative -Benzodiazepine: >800 -Cocaine: >1000 -Serum alcohol: <10 Disposition Summary Disposition Principal Diagnosis: Polysubstance intoxication/overdose Additional Diagnosis: Altered mental status Discharge Disposition: home or self care Discharge Instructions General Discharge Information Code Status: Full Code Patient's Diet: Regular diet Patient's Activity: Return to full activity as tolerated Follow-Up Instructions/Appts: Follow-up with your primary care provider after discharge. Continue to follow up with your methadone clinic for your continued medication needs. Avoid street drugs, continue to participate in your outpatient drug rehabilitation program. Medications at Discharge Discharge Medications: Stop taking the following medications: Amoxicillin (Amoxicillin) 500 MG TABLET ORAL THREE TIMES DAILY Qty = 30 Sulfamethoxazole/Trimethopri (Bactrim Ds 800 MG-160 MG) 1 TAB TAB ORAL TWICE DAILY Days = 10 Ibuprofen (Ibu) 800 MG TAB ORAL Q8H as needed for PAIN Qty = 20 TRAMADOL HCL (Tramadol) 50 MG TABLET ORAL EVERY SIX HOURS NEEDED as needed for PAIN Qty = 30 Prednisone (Prednicot) 20 MG TAB ORAL DAILY Days = 4 Naproxen (Naproxen) 500 MG TAB ORAL TWICE DAILY Qty = 30 Cyclobenzaprine (Flexeril 5MG Tab) 5 MG TAB ORAL THREE TIMES DAILY as needed for PAIN Qty = 15 Continue taking these medications: Albuterol Sulfate (Proair Hfa) 90 MCG HFA.AER.AD 2 Puff Inhale through mouth EVERY 4-6 HOURS NEEDED as needed for asthma Methadone Hydrochloride (Methadone HCl) 10 MG TABLET 70 Milligram ORAL DAILY Qty = 30 Instructions: Only one dose given in the hospital. Please contact your methadone clinic for further instructions. Comments: GIVEN 12/17/16 AT 0900 Copies To: TAILB CONDE,DANITA; AIDE CONDE,PAN
== END 2016-12-17 09:15 | DRG 816 ==
LOC: ENRESERVDT → ENRESERVTM → ERH 08:52 → ERHI 13:00 → 2NA 17:58
PROVIDERS: Emergency Medicine; ADMIT Internal Medicine
DX: T65.91XA Toxic effect of unspecified substance, accidental (unintentional), initial encounter (principal); F11.229 Opioid dependence with intoxication, unspecified
CPT/HCPCS: 2NAP; 36415; 80307; 82436; 93005; 93010; 96365; 99291; G0480; J1644; J2310